=== PATIENT | male | born 1955 | race Caucasian/White ===

== ENCOUNTER → 2020-08-28 | Outpatient (CLI) | payer MEDICARE ==
[2015-07-14 12:45] VITALS: BP 138/56
[~2020-08-28] MED LIST: ASPI81TA59 PO; BUPR100T6 PO; DOCU-109 PO; ESOM40CA PO; FERR325T14 PO; FLUT1BLS3 IH; FLUT9.9S NS; GLUC1TAB33 PO; HYDR-2679 PO; HYDR-2761 PO; MECO10005 PO; METH-562 PO; METH10TA4 PO; METH20CP3 PO; METH20TA PO; MONT10TA49 PO; OMEP40CA45 PO; OXYC10TA46 PO; OXYC1TAB15 PO; PRAM0.255 PO; PRAM1TAB36 PO; PREG50CA91 PO; PROP20TA PO; ROPI1TAB PO; TAMS0.4C2 PO; TAMS0.4C97 PO; ZALE10CA PO
[2020-08-28 13:38] LABS: BASO % 0 % (0-3); EOS # 0.1 x10^3/uL (0.0-0.7); EOS % 1 % (0-3); HEMATOCRIT 45.4 % (39.0-53.0); HEMOGLOBIN 15.2 g/dL (13.0-17.5); LYMPH # 1.6 x10^3/uL (1.0-4.8); LYMPH % 22 % (24-48); MEAN CORPUSCULAR HEMOGLOBIN 30 pg (25-35); MEAN CORPUSCULAR HGB CONC 33 g/dL (31-37); MEAN CORPUSCULAR VOLUME 88 fL (79-100); MONO # 0.5 x10^3/uL (0.0-1.1); MONO % 7 % (0-9); NEUT # 5.3 x10^3/uL (1.8-7.7); NEUT % 70 % (31-73); PLATELET COUNT 160 x10^3/uL (140-400); RED BLOOD COUNT 5.14 x10^6/uL (4.30-5.70); RED CELL DISTRIBUTION WIDTH 15.3 % (11.5-14.5); WHITE BLOOD COUNT 7.6 x10^3/uL (4.0-11.0)
[2020-08-28 13:49] LABS: PROTHROMBIN TIME PATIENT 13.2 SEC (11.7-14.0)
[2020-08-28 13:52] LABS: ALBUMIN 3.8 g/dL (3.4-5.0); ALBUMIN/GLOBULIN RATIO 1.4 (1.0-1.7); CALCIUM 8.4 mg/dL (8.5-10.1); CREATININE 0.9 mg/dL (0.7-1.3); GFR 84.4; POTASSIUM 4.1 mmol/L (3.5-5.1); TOTAL BILIRUBIN 0.8 mg/dL (0.2-1.0); TOTAL PROTEIN 6.5 g/dL (6.4-8.2)
== END ==
LOC: SURGPAT 12:42
PROVIDERS: ATTEND Neurological Surgery
DX: Z01.818 Encounter for other preprocedural examination (principal); M54.16 Radiculopathy, lumbar region; M48.062 Spinal stenosis, lumbar region with neurogenic claudication
CPT/HCPCS: 80053; 85025; 85610; 85730; 87641; U0003

== ENCOUNTER → 2020-10-15 | Outpatient (CLI) | payer MEDICARE ==
[2020-09-02 14:24] VITALS: BP 142/39
--- NOTE | 2020-10-15 12:53 | KCIC ---
EXAMINATION: Magnetic resonance imaging (MRI) of the lumbar spine without contrast 10/15/2020 9:15 AM HISTORY: Low back pain. 5 prior lumbar surgeries the last 1 6 weeks ago. Right leg weakness. TECHNIQUE: Multiplanar multi-weighted MRI of the lumbar spine was performed without intravenous contr ast using the standard lumbar spine protocol. Contrast information: None administered. COMPARISON: CT lumbar spine 08/30/2020. FINDINGS: Posterior fusion is identified with bilateral pedicle screws at L4-L5. Interbody fusion is identified at L5-S1. There is 2 mm retrolisthesis of L1 on L2 and L2 on L3. Vertebral body heights are maintain ed. There is marrow edema involving the superior endplate of L5 with a linear T1 hypointense region w hich could represent a fracture. There is a fluid collection within the superficial soft tissues of t he lumbar region measuring approximately 3.6 x 3.2 x 10.5 cm. Conus medullaris terminates at L1. Dist al spinal cord signal intensity is normal in all sequences. Abdominal aorta is normal in caliber. No suspicious retroperitoneal abnormality is identified. Visualized portions of the sacrum appear intact . L2-L3: There is a circumferential disc bulge with left foraminal disc extrusion. There is moderate fa cet arthropathy ligamentum flavum infolding. Severe bilateral neuroforaminal stenosis, left or the ri ght. Is left lateral recess stenosis. There is moderate spinal canal stenosis, exacerbated by epidura l lipomatosis. L3-L4: There is a circumferential disc bulge. Moderate facet arthropathy ligamentum flavum infolding. Severe right and moderate left neuroforaminal stenosis. Mild spinal canal stenosis. L4-L5: This level is fused and decompressed. No residual neuroforaminal or spinal canal stenosis. L5-S1: This level is fused and the compressed by laminectomy. No residual spinal canal stenosis. IMPRESSION: Posterior fusion noted at L4-L5 without evidence for hardware failure. Interbody fusion at L5-S1 with laminectomy changes without residual spinal canal stenosis. Moderate degenerative changes of the lumbar spine are present at L2-L3 and L3-L4 as described in nori rodríguez above. Electronically signed by: Magdalena Garza MD (10/15/2020 12:51 PM) [id number]
== END ==
LOC: KCIC MRI 08:55
PROVIDERS: ATTEND Neurological Surgery
DX: M47.26 Other spondylosis with radiculopathy, lumbar region (principal)
CPT/HCPCS: 72148